=== PATIENT | female | born 1945 | race Caucasian/White ===

== ENCOUNTER 2018-03-26 17:52 | Emergency (ER) | payer OTHER ==
[~2018-03-26] VITALS: Ht 165.1 cm; Wt 86.2 kg
--- NOTE | 2018-03-26 19:31 | ULTRASOUND REPORT ---
EXAMINATION: US TRIPLEX LOWER EXTREMITY, RIGHT CLINICAL INFORMATION: Right lower extremity swelling x2 days. Intermittent right knee pain. COMPARISON: CT abdomen and pelvis 04/20/2016. TECHNIQUE: Color-flow triplex imaging with spectral analysis and compression Doppler were performed on the lower extremity. FINDINGS: The visualized common femoral vein, superficial femoral vein, profunda femoral vein, popliteal vein and midcalf peroneal and posterior tibial venous segments show no evidence of deep venous thrombosis. There is a suspected right knee effusion. There is no Hurtado's cyst. IMPRESSION: Right knee effusion. Otherwise normal triplex scan without evidence of deep venous thrombosis involving the lower extremity.
--- NOTE | 2018-03-26 19:48 | ED UPPER/LOWER EXTREMITY COMPL ---
History of Present Illness General Chief Complaint: Lower Extremity Problems Stated Complaint: SIB DR. MAJANO FOR ?BLOOD CLOT IN R LEG Source: patient Exam Limitations: no limitations Vital Signs & Intake/Output Vital Signs & Intake/Output Vital Signs Date Time Temp Pulse Resp B/P B/P Pulse O2 O2 Flow FiO2 Mean Ox Delivery Rate 03/26 2002 96.8 73 18 96 Room Air 03/26 2001 174/90 03/26 175 96.2 80 20 178/83 96 Room Air Allergies Coded Allergies: MDX - Fluconazole (UNKNOWN 03/26/18) MDX - Oxycodone (UNKNOWN 03/26/18) MDX - SULFA (sulfonamide) (UNKNOWN 03/26/18) MDX - Tetracycline (UNKNOWN 03/26/18) Triage Note: PT TO ED FOR RIGHT LEG SWELLING SINCE YESTERDAY. WAS SENT IN FOR R/O BLOOD CLOT. PT HAD RECENT TRAVEL HOME IN THE CAR FROM [place]. PAIN IS WORSE WITH WEIGHT BEARING. Triage Nurses Notes Reviewed? yes Onset: Abrupt Duration: day(s): Timing: recent history Severity: mild, moderate Pain/Injury Location: Right: Leg. No Modifying Factors: none HPI: 72-year-old female comes into the emergency room sent in to rule out DVT to right lower leg. Patient has had some swelling in her right leg for the last 24 hours. Denies any redness. Denies any shortness of breath or any other symptoms. They have been doing a lot of driving recently. She was sent in to have DVT ruled out. There is no redness. No fever chills. No trauma. (Dayo Wright) Past History Travel History Traveled to [facility] past 21 day No Medical History Any Pertinent Medical History? see below for history Cardiovascular: hypertension Endocrine: hypothyroidism Surgical History Surgical History: non-contributory Psychosocial History Who do you live with Spouse What is your primary language Turkish Tobacco Use: Current Daily Use Daily Tobacco Use Amount/Type: => 5 Cigarettes daily ETOH Use: denies use Illicit Drug Use: denies illicit drug use Family History Hx Contributory? No (Dayo Wright) Review of Systems Review of Systems Constitutional: Reports: no symptoms. EENTM: Reports: no symptoms. Respiratory: Reports: no symptoms. Cardiovascular: Reports: no symptoms. Gastrointestinal/Abdominal: Reports: no symptoms. Genitourinary: Reports: no symptoms. Musculoskeletal: Reports: see HPI. Skin: Reports: no symptoms. Neurological/Psychological: Reports: no symptoms. Hematologic/Endocrine: Reports: no symptoms. Immunological: Reports: no symptoms. All Other Systems: Reviewed and Negative (Dayo Wright) Physical Exam Physical Exam General Appearance: well developed/nourished, mild distress Head: atraumatic Eyes: Bilateral: normal appearance. Ears, Nose, Throat: normal ENT inspection, hearing grossly normal Neck: normal inspection Cardiovascular/Respiratory: no respiratory distress Back: normal inspection Leg Right: 1+ pitting edema, swelling to right knee, no erythema, no warmth, Knee Right: swelling, joint effusion Neurologic/Tendon: normal sensation, normal motor functions, normal tendon functions, responds to pain, no evidence tendon injury, no pulse deficit Skin: intact, normal color, warm/dry (Dayo Wright) Progress Differential Diagnosis: contusion, DVT, fracture, gout, septic arthritis, sprain , tendon injury Plan of Care: 03/26/2018 8:08:38 PM Diagnostic Imaging: Viewed by Me: Ultrasound. Discussed w/RAD: Ultrasound. Radiology Impression: PATIENT: MARICRUZ JOHNSON PRESENT AGE: 72 PATIENT ACCOUNT NO: [id number] : 46 LOCATION: [facility] ORDERING PHYSICIAN: Dayo ELIZALDE SERVICE DATE: 03/26/18 EXAM TYPE: US - US -UNILATERAL VENOUS DOPPLER EXAMINATION: US TRIPLEX LOWER EXTREMITY, RIGHT CLINICAL INFORMATION: Right lower extremity swelling x2 days. Intermittent right knee pain. COMPARISON: CT abdomen and pelvis 04/20/2016. TECHNIQUE: Color-flow triplex imaging with spectral analysis and compression Doppler were performed on the lower extremity. FINDINGS: The visualized common femoral vein, superficial femoral vein, profunda femoral vein, popliteal vein and midcalf peroneal and posterior tibial venous segments show no evidence of deep venous thrombosis. There is a suspected right knee effusion. There is no Hurtado's cyst. IMPRESSION: Right knee effusion. Otherwise normal triplex scan without evidence of deep venous thrombosis involving the lower extremity. DICTATED BY: Jessica AVILES,Nito Santoyo DATE/TIME DICTATED:03/26/181925 SUPERVISOR SHRIMP POND:DRE DATE/TIME TRANSCRIBED:03/26/181925 CONFIDENTIAL, DO NOT COPY WITHOUT APPROPRIATE AUTHORIZATION. <Electronically signed in Other Vendor System> SIGNED BY: Nito Lopez MD 03/26/181930 (Dayo Wright) Departure Departure Disposition: HOME OR SELF CARE Condition: Stable Clinical Impression Primary Impression: Right leg swelling Referrals: Perico AVILES,Dann Romero (PCP/Family) Additional Instructions: Ice right knee. Elevate your leg. The Compression stocking. Return if any other concerns. Please go over all results of today's visit with your primary care doctor. Contact your primary care doctor to let them know you were here in the emergency room. There may be nonspecific findings which may not be related to your visit today here in the emergency room but may require further evaluation and chronic monitoring by your primary care doctor. If you had a laceration today the chance of foreign body always remains. You should follow-up with your primary care doctor for recheck in 3-5 days for a wound check. If you had an x-ray done there is a chance that a fracture could have been missed on initial read and you should follow-up with your primary care doctor for repeat x-rays if symptoms persist. If your blood pressure was elevated here in the emergency room please have rechecked by [facility] primary care doctor within the next 48. If you were prescribed a narcotic here in the emergency room or any type of controlled substances you're not allowed to drive while taking this medication or operate any type of heavy machinery. Narcotics can make you feel lightheaded dizziness nausea and can cause constipation. You may need to milk pickup driver a stool softener. Thank you for choosing emergency room. Please return to the emergency room immediately if you have any other concerns worsening of symptoms. Departure Forms: Customer Survey General Discharge Information Comments 03/26/2018 8:09:18 PM No evidence of DVT. Return if any other concerns worsening symptoms. (Dayo Wright) PA/HEAD OF PRODUCT Co-Sign Statement Statement: ED Attending supervision documentation- [] I saw and evaluated the patient. I have also reviewed all the pertinent lab results and diagnostic results. I agree with the findings and the plan of care as documented in the PA's/HEAD OF PRODUCT's documentation. [X] I have reviewed the ED Record and agree with the PA's/HEAD OF PRODUCT's documentation. [] Additions or exceptions (if any) to the PAs/HEAD OF PRODUCT's note and plan are summarized below: [] (Vamsi AVILES,Papito Bedoya)
[2018-03-26 20:01] VITALS: BP 174/90
== END 2018-03-26 20:05 ==
LOC: ERH 17:52
DX: M79.89 Other specified soft tissue disorders (principal)